=== PATIENT | male | born 1985 | race Caucasian/White ===

== ENCOUNTER → 2018-03-28 | Day surgery (SDC) | payer BC ==
[~2018-03-28] VITALS: Ht 167.6 cm; Wt 74.8 kg
[~2018-03-28] MED LIST: BUPIVAC MPF-EPI 0.5%-1:200000 30 ML VIAL. INJ ONE; BUPIVAC MPF-EPI 0.5%-1:200000 30 ML VIAL. ONE; DEXAMETHASONE SOD PHOS 20 MG/5 ML VIAL. ONE; ESCITALOPRAM OX10 MG PO; GLUCAGON,HUMAN RECOMBINANT 1 MG/ML VIAL. ONE; GLYCOPYRROLATE 1 MG/5 ML VIAL. ONE; IOHEXOL 300 MG/ML 100ML VIAL. IV ONE; IOHEXOL 300 MG/ML 100ML VIAL. ONE; IV RINGERS,LACTATED 1000ML 1,000 ML IV SCH; KETOROLAC 30 MG/ML INJ FOR OR. INJ ONE; LIDOCAINE 1% PF 2 ML VIAL. ID PRN; LIDOCAINE 2% PF Vial for OR 5 ML VIAL. ONE; LISI1TAB3 PO; MIDAZOLAM HCL/PF 2 MG/2 ML VIAL. IV PRN; MIDAZOLAM HCL/PF 2 MG/2 ML VIAL. ONE; NEOSTIGMINE METHYLSULFATE 5 MG/5 ML SYRINGE. ONE; ONDANSETRON PF 4 MG/2 ML VIAL. ONE; PHENYLEPHRINE in 0.9% NACL PF 1 MG/10 ML SYRINGE. IV ONE; PROPOFOL 20 ML IV ONE; ROCURONIUM 50 MG/5 ML VIAL. ONE; SURGICEL HEMOSTAT 4X8 EACH. ONE; ZOLP5TAB PO; ePHEDrine PF IN SALINE 50 MG/5 ML DISP.SYRIN IV ONE; fentaNYL PF VIAL 100 MCG/2 ML VIAL IV PRN; fentaNYL PF VIAL 100 MCG/2 ML VIAL ONE; oxyCODONE/APAP 5/325 1 TAB TABLET PO ONE
[2018-03-28 07:30] LABS: BASO # 0.1 x10^3/uL (0.0-0.2); BASO % 1 % (0-3); EOS # 0.1 x10^3/uL (0.0-0.7); EOS % 2 % (0-3); HEMATOCRIT 44.2 % (39.0-53.0); HEMOGLOBIN 15.5 g/dL (13.0-17.5); LYMPH # 2.2 x10^3/uL (1.0-4.8); LYMPH % 36 % (24-48); MEAN CORPUSCULAR HEMOGLOBIN 32 pg (25-35); MEAN CORPUSCULAR HGB CONC 35 g/dL (31-37); MEAN CORPUSCULAR VOLUME 92 fL (79-100); MONO # 0.9 x10^3/uL (0.0-1.1); MONO % 16 % (0-9); NEUT # 2.8 x10^3uL (1.8-7.7); NEUT % 46 % (31-73); PLATELET COUNT 355 x10^3/uL (140-400); RED BLOOD COUNT 4.81 x10^6/uL (4.30-5.70); RED CELL DISTRIBUTION WIDTH 12.8 % (11.5-14.5)
[2018-03-28 07:36] LABS: CALCIUM 9.3 mg/dL (8.5-10.1); GFR 87.2; POTASSIUM 3.9 mmol/L (3.5-5.1)
[2018-03-28 07:42] LABS: ALBUMIN 3.9 g/dL (3.4-5.0); DIRECT BILIRUBIN 0.1 mg/dL (0.0-0.2); TOTAL BILIRUBIN 0.5 mg/dL (0.2-1.0); TOTAL PROTEIN 7.8 g/dL (6.4-8.2)
--- NOTE | 2018-03-28 08:55 | RAD ---
Intraoperative cholangiogram, 03/28/2018: HISTORY: Cholecystectomy 3 spot films from surgery are presented for review. Contrast has been injected into the cystic duct remnant. 21 seconds of fluoroscopy time was utilized. The common duct is of normal caliber with good flow contrast into the duodenum. No filling defect is seen in the common duct to suggest a retained stone. The incompletely opacified intrahepatic ducts are unremarkable. No contrast extravasation is seen. IMPRESSION: No significant abnormality is detected. Electronically signed by: Ajith Lyon MD (03/28/2018 8:52 AM) [facility]
--- NOTE | 2018-03-28 09:13 | PDOC ---
BRIEF OPERATIVE NOTE Date: Mar 28, 2018 Pre-Op Diagnosis symptomatic cholelithiasis Post-Op Diagnosis same Procedure Performed l/s cholecystectomy with cholangiograms Surgeon Casey Club Steward Carleen GROVER Anesthesia Type: General Blood Loss 15cc IV Fluid 1200cc Specimens Obtained GB Findings supple GB, normal grams Complications none Operative Note Wk # [id number] JAYA WILSON MD Mar 28, 2018 09:12
--- NOTE | 2018-03-28 09:14 | DISCH ---
DISCHARGE INSTRUCTIONS Condition on Discharge Condition on Discharge: Stable Activity After Discharge Activity Instructions for Disc: Activity as tolerated, Avoid exertion Driving Instructions after Dis: Do not drive (2-3 days) Diet after Discharge Diet after Discharge: Regular Wound Incision Care Wound/Incision Care: Ice to area for comfort Other wound/incision instructi: august shower Sunday Follow-Up Follow up with: Casey next week JAYA WILSON MD Mar 28, 2018 09:13
--- NOTE | 2018-03-28 09:22 | OP ---
DATE OF SURGERY: 03/28/2018 PREOPERATIVE DIAGNOSIS: Symptomatic cholelithiasis. POSTOPERATIVE DIAGNOSIS: Symptomatic cholelithiasis. PROCEDURE: Laparoscopic cholecystectomy with cholangiogram. SURGEON: Lior Wilson MD TAWER: LENORE Corado. ANESTHESIA: General endotracheal. BLOOD LOSS: 15. IV FLUID: 1200. INDICATIONS: The patient is a 33-year-old with right upper quadrant discomfort after meals. Ultrasound shows stones. He is brought for cholecystectomy. OPERATIVE FINDINGS: The liver was smooth and sharp (preoperative LFTs were within normal limits). Gallbladder was supple. Cholangiograms were normal. Visual inspection of the remainder of the abdomen failed to reveal obvious abnormalities. DESCRIPTION OF PROCEDURE: The patient brought to the operating suite, given a general endotracheal anesthetic and the abdomen prepped and draped in usual sterile fashion. A supraumbilical incision was infiltrated with local anesthetic, incised and a 5 mm Visiport used to gain access into the abdominal cavity. Pneumoperitoneum established. Camera inserted. Inspection carried out with results as noted above. With the table in reverse Trendelenburg, rolled to the left, the epigastric and midclavicular ports were placed. The lateral port location was used for an "alligator" grasper. The gallbladder retracted superolaterally and the omental adhesions taken down with careful blunt and cautery dissection, avoiding injury to adjacent bowel. The cystic duct and cystic artery were identified. The duct was clipped on the gallbladder side. Cholangiograms were made. These were normal. In light of this, the catheter was removed. The cystic duct was clipped x 3 and divided, taking care to avoid injury or compromise of the common duct. An anterior and posterior branch of the cystic artery were clipped and divided and gallbladder freed from the bed with cautery dissection and placed in an EndoCatch bag. Good hemostasis was present. Table returned to level. Gallbladder delivered through the epigastric incision. Epigastric incision closed with interrupted 0 Vicryl suture. Intra-abdominal pressure decreased to 6 cm of water. No bleeding from the epigastric closure or from the midclavicular port site after its removal or from the location of the alligator grasper after it was removed. Abdomen decompressed, camera removed, no bleeding seen. Skin incisions closed with subcuticular 4-0 Monocryl. Steri-Strips and sterile dressings applied. The patient was awakened from his anesthetic and taken to the recovery room in satisfactory condition. LIOR WILSON MD DR: MELANIA/korey JOB#: [id number] / [id number]
[2018-03-28] MEDS: fentaNYL PF VIAL 100 MCG/2 ML VIAL IV PRN ×4 (09:35→10:24)
[2018-03-28 13:00] VITALS: BP 162/92
--- NOTE | 2018-03-29 18:07 | PATHOLOGY ---
[facility] Accession Number: [id number] . 01 Material submitted: . GALLBLADDER . 01 Clinical history: . None provided. . 02 Diagnosis: Gallbladder, laparoscopic cholecystectomy: - Cholelithiasis. - Chronic cholecystitis. LB/03/29/2018 . 02 Comment: There is no evidence of malignancy. (JPM/db; 03/29/2018) . 02 Electronically signed: . Bam Barber MD, Pathologist NPI- [id number] . 01 Gross description: . Received in formalin labeled "Coy, Dave, gallbladder" is an intact cholecystectomy specimen which measures 6.5 x 3.3 x 2.4 cm. The external surface is pink-jenkins and smooth. The specimen is opened to reveal jenkins-green velvety mucosa and an average wall thickness of 0.2 cm. No polyps or masses are present. Multiple black roughened calculi are present measuring in aggregate 0.6 x 0.4 x 0.3 cm and range from 0.2-0.3 cm in greatest dimension. [employer]house [employer] sections of the fundus and body and the cystic duct margin are submitted in cassette A1. ([facility] [place]; 03/28/2018) SY/SYC . 02 Pathologist provided ICD-10: K80.10 . 02 CPT . 516312 Specimen Comment: A courtesy copy of this report has been sent to Specimen Comment: [phone], . Specimen Comment: Report sent to / DR JIM Performed at: 01 [facility] [address], [place], [place] [id number] MD Ankur Puentes MD Phone: [phone] Performed at: 02 [facility] [address] [place], [place] [id number] MD Bam Barber MD Phone: [phone]
== END | disposition home or self-care (01) ==
LOC: SURG 06:24
PROVIDERS: ATTEND Surgery
DX: K80.10 Calculus of gallbladder with chronic cholecystitis without obstruction (principal); I10 Essential (primary) hypertension; J45.909 Unspecified asthma, uncomplicated; F32.9 Major depressive disorder, single episode, unspecified; I34.0 Nonrheumatic mitral (valve) insufficiency; E55.9 Vitamin D deficiency, unspecified; Z79.899 Other long term (current) drug therapy; Z98.890 Other specified postprocedural states; Z82.49 Family history of ischemic heart disease and other diseases of the circulatory system; Z80.0 Family history of malignant neoplasm of digestive organs; Z83.3 Family history of diabetes mellitus; F17.210 Nicotine dependence, cigarettes, uncomplicated; Z72.89 Other problems related to lifestyle; Z88.0 Allergy status to penicillin
CPT/HCPCS: 36415; 47563; 74300; 80048; 80076; 85025; A7015; J1100; J1885; J1956; J2001; J2250; J2370; J2405; J2704; J2710; J3010; J3490; J7030; J7120; Q9967; J1610